=== PATIENT | male | born 1975 | race Caucasian/White ===

== ENCOUNTER → 2024-11-13 15:16 | Outpatient (REF) | payer OTHER, SELFPAY | LOC: HWRAD 15:16 | PROVIDERS: ATTENDING PHYSICIAN Family Medicine | DX: R10.9 Unspecified abdominal pain (principal) | CPT/HCPCS: 76700 ==

== ENCOUNTER → 2025-01-01 08:55 | Outpatient (REF) | payer OTHER, SELFPAY | LOC: HWRAD 08:55 | PROVIDERS: ATTENDING PHYSICIAN Family Medicine | DX: E78.5 Hyperlipidemia, unspecified (principal); R10.32 Left lower quadrant pain | CPT/HCPCS: 74150; 75571 ==